=== PATIENT | female | born 1965 | race Caucasian/White ===

== ENCOUNTER 2016-07-05 18:27 | Inpatient (IN) | payer OTHER ==
[2016-07-05] MEDS ORDERED: IOPAMIDOL 370 (76%) 100 ML VIAL IV ONE (18:28)
[2016-07-05] MEDS ORDERED: ONDANSETRON 4 MG/2ML 2 ML VIAL ONE ×2 (18:58→19:26)
[2016-07-05] MEDS ORDERED: SODIUM CHLORIDE 0.9% 1,000 ML ONE (18:58)
[2016-07-05 19:03] LABS: ABSOLUTE NEUTROPHIL COUNT 10.2 K/mm3 (1.8-7.7); BASO # 0.1 K/mm3 (0.0-0.2); BASO % 0.4 % (0.2-1.0); EOS # 0.2 (0.0-0.5); EOS % 1.6 % (0.9-2.9); HEMOGLOBIN 16.1 gm/l (12.0-16.0); IMM NEUT% 0.3 % (0-1); LYMPH # 1.8 (1.0-4.8); LYMPH % 13.6 % (15-45); MEAN CELL VOLUME 90.7 fl (81.0-99.0); MEAN CORPUSCULAR HEMOGLOBIN 29.2 pg (27.0-31.0); MEAN CORPUSCULAR HGB CONC 32.2 g/dl (33.0-37.0); MONO % 7.8 % (4-12); NEUT % 76.3 % (43-75); PLATELET COUNT 319 K/mm3 (130-400); RED CELL DISTRIBUTION WIDTH 13.2 % (11.5-14.5)
[2016-07-05 19:20] LABS: ALB/GLOB RATIO 1.2 (>1.0); ALBUMIN 3.8 gm/dL (3.5-5.7); CALCIUM 9.4 mg/dL (8.6-10.3)
[2016-07-05] MEDS ORDERED: HYDROMORPHONE HCL 1 MG/ML SYRINGE ONE (19:26)
[2016-07-05 19:51] LABS: SPECIFIC GRAVITY 1.025 (1.001-1.030); URINE BILIRUBIN NEGATIVE (NEGATIVE); URINE BLOOD TRACE (NEGATIVE); URINE GLUCOSE (UA) TRACE (NEGATIVE); URINE LEUKOCYTE ESTERASE NEGATIVE (NEGATIVE); URINE NITRITE NEGATIVE (NEGATIVE); URINE PROTEIN 1+ (NEGATIVE); URINE UROBILINOGEN NORMAL (0-1 mg/dl)
[2016-07-05 19:52] LABS: URINE APPEARANCE CLEAR; URINE COLOR AMBER
[2016-07-05 20:12] LABS: URINE BACTERIA 1+; URINE MUCUS 1+
--- NOTE | 2016-07-05 20:23 | CT ---
Name: BETTY SHARIF Exam: CT abdomen pelvis with contrast Comparison: None History: Vomiting and diarrhea Procedure: Helical CT using multidetector technique was applied to the abdomen and pelvis during intravenous administration of 100 cc Isovue-370. No oral contrast was given per ordering physician. An automated dose reduction technique was used to minimize patient radiation dose. Findings: CT abdomen (contrast enhanced): Lung bases are clear. Heart is nonenlarged. There is no pericardial effusion. Fatty infiltration of liver is identified. The gallbladder is surgically absent. There is no suspicious biliary dilation. Pancreas, spleen, adrenal glands, right kidney, aorta and portal vein are normal. There is a 6 1 cm left renal cyst. The IVC is flattened suggesting a component of dehydration. There is a small hiatal hernia. Stomach is not distended. There are multiple abnormally dilated loops of small bowel measuring up to 4 cm. Bowel wall thickening is present. Diffuse edema is noted throughout the mesentery. There are air-fluid levels within nondistended colon. There is no colonic wall thickening. Trace diffuse ascites is present. There is no free air or abscess. The appendix is not identified as a separate anatomic structure. There is a fat filled umbilical hernia. Regional skeleton is within normal limits for the patient's age. CT pelvis (contrast enhanced): Bladder is empty. Uterus and ovaries are absent. Colon is mostly decompressed. Diffuse thickening of the small bowel is present. Mesenteric edema is present within the small bowel mesentery in the pelvis, there is a 10 mm fairly coarse calcification. In the right lower quadrant, there is a well-corticated oval 16 mm calcific density and this calcification is thought to represent old fat necrosis. There is mild free fluid. There is no free air, abscess or adenopathy. Impression: 1. Findings most consistent with small bowel obstruction. Findings may simply represent obstruction due to adhesion. However, given the increased density within the mesentery, closed loop or internal hernia is not excluded. Given the soft tissue stranding with coarse calcification at the root of the mesentery in the pelvis, carcinoid is not excluded. 2. Nonvisualization of the appendix 3. Air-fluid levels within nondistended colon consistent with patient's history of diarrhea 4. Surgically absent uterus, ovaries and gallbladder 5. Fatty infiltration liver Note: ED was initially contacted at 2009 hours. Findings were discussed Dr. Glynn at 2014 hours.
[2016-07-05] MEDS ORDERED: LACTATED RINGERS 1,000 ML ONE (20:50)
[2016-07-05] MEDS ORDERED: MENTHOL/CETYLPYRD 1 EACH LOZENGE PO PRN (21:29)
[2016-07-05] MEDS ORDERED: SODIUM CHLORIDE 0.9% 100 ML IV PRN (21:29)
[2016-07-05] MEDS ORDERED: BLISTEX LIPSTICK 1 EACH TP PRN (21:29)
[2016-07-05 23:07] VITALS: BMI 42.6
[2016-07-05] MEDS ORDERED: SODIUM CHLOR 0.45%/KCL 20 MEQ 1,000 ML ONE (23:37)
[2016-07-05] MEDS ORDERED: PUMP TUBING ONE (23:37)
[2016-07-05] MEDS: POTASSIUM CHLORIDE 20 MEQ in SODIUM CHLORIDE 0.45% 1,000 ML IV SCH (23:42)
[2016-07-06] MEDS ORDERED: HYDROMORPHONE HCL 1 MG/ML SYRINGE IV PRN (02:21)
[2016-07-06] MEDS: SODIUM CHLOR 0.45%/KCL 20 MEQ 1,000 ML IV SCH ×4 (03:46→22:06)
[2016-07-06] MEDS: POTASSIUM CHLORIDE 20 MEQ in SODIUM CHLORIDE 0.45% 1,000 ML IV SCH (05:03)
[2016-07-06 06:16] LABS: HEMATOCRIT 43.7 % (37.0-47.0); HEMOGLOBIN 13.6 gm/l (12.0-16.0); MEAN CORPUSCULAR HEMOGLOBIN 28.6 pg (27.0-31.0); MEAN CORPUSCULAR HGB CONC 31.1 g/dl (33.0-37.0); RED CELL DISTRIBUTION WIDTH 13.2 % (11.5-14.5)
[2016-07-06 06:30] LABS: CALCIUM 8.4 mg/dL (8.6-10.3)
--- NOTE | 2016-07-06 07:58 | HP ---
BETTY SHARIF [id number] : 1965 DATE OF ADMISSION: July 05, 2016 IDENTIFICATION: Ms. Sharif is a 50-year-old followed by Dr. Adler. CHIEF COMPLAINT: Vomiting, diarrhea and abdominal pain. HISTORY OF PRESENT ILLNESS: Ms. Sharif reports onset of nausea and vomiting five days ago on Wednesday, July 01, 2016. She started to have diarrhea at the same time. Anytime she has consumed food or fluids since then, she has had vomiting and diarrhea. She reports abdominal pain which is all the way across her abdomen strikes after she urinates, lasts for a while and gets better. She has not had any fever or chills. She has no prior history of similar symptoms, but has had several abdominal surgeries. CT scan in the emergency department was consistent with partial small bowel obstruction, and she was referred to the hospitalist service. REVIEW OF SYSTEMS: HEENT: She has felt dizzy and faint. No headache, no loss of consciousness. Denies problems with ears, eyes, nose or throat. RESPIRATORY: No cough or dyspnea. CARDIAC: No chest pain or palpitations. GASTROINTESTINAL: As per History of Present Illness. GENITOURINARY: She does not have any dysuria or urinary urgency just the abdominal pain after voiding. MUSCULOSKELETAL: Does feel that her hands and feet have been swollen. CONSTITUTIONAL: No fevers or chills, no recent weight change. PAST MEDICAL HISTORY: 1. Glucose intolerance or early diabetes. She is not sure about that. 2. Morbid obesity with body mass index greater than 42. 3. Meniere's disease. 4. History of hyperparathyroidism. PAST SURGICAL HISTORY: 1. A procedure for overlapping skull bones at [age] years of age. 2. Cholecystectomy. 3. A unilateral salpingo-oophorectomy. 4. Subsequent hysterectomy. 5. A supposed appendectomy but then her appendix was removed a second time with her hysterectomy. 6. Parathyroidectomy. ALLERGIES: NONE KNOWN. MEDICATIONS: No current prescription medications. HABITS: She smokes one-half pack of cigarettes a day and has done so for 40 years. Denies any current alcohol use or illicit drug use. SOCIAL HISTORY: She is unemployed. Lives with her , son, and [id number] in [place]. Notably, her had an episode of diarrhea on Wednesday. He did not have any vomiting or abdominal pain and his symptoms have resolved. FAMILY HISTORY: Her mother has diabetes. She says family members have edema and Meniere's disease. PHYSICAL EXAMINATION: GENERAL: This is a morbidly obese 50-year-old. She appears moderately uncomfortable with abdominal pain and dizziness. VITAL SIGNS: Temperature 97.6 degrees Fahrenheit, pulse 90, blood pressure 170/110, respiratory rate 18, oxygen saturation 93% on room air. HEENT: Pupils are equal, round and reactive. Extraocular muscles are intact. Oropharynx is dry. NECK: No appreciable adenopathy. CHEST: Clear to auscultation. HEART: Is regular, no murmur. ABDOMEN: Obese, soft with diffuse moderate to severe tenderness to palpation. No guarding or rebound. Bowel sounds are decreased and high pitched. No masses palpated. EXTREMITIES: Good peripheral pulses. No pitting edema. NEUROLOGIC: Alert and oriented, no focal deficits. LABORATORY DATA: White blood cell count 13.4 with 76% neutrophils, hemoglobin and hematocrit 16.1 and 50.0, platelets 319. Sodium 136, potassium low at 3.5, chloride 101, CO2 25, BUN 23, creatinine 0.9, glucose is 165. Liver enzymes are normal. Lipase is normal. Urinalysis specific gravity 1.025. There is 1+ protein, trace glucose, trace ketones, trace blood. Negative leukocyte esterase, negative nitrite. Microscopic shows 2 to 3 red blood cells, 1 to 2 white blood cells, 1 to 2 epithelial cells, 1+ bacteria. RADIOLOGY: CT scan of the abdomen and pelvis significant for air/fluid levels suggesting small bowel obstruction. There is some increased density in the mesentery possibly indicating internal hernia and possible findings of carcinoid. Absent appendix, absent uterus, ovaries and gallbladder. Fatty infiltration of the liver. ASSESSMENT: Ms. Sharif is a 50-year-old who presents with partial small bowel obstruction. She has hypokalemia from the vomiting and diarrhea and dehydration with polycythemia. She has hyperglycemia and probably underlying diabetes mellitus type 2 with her morbid obesity and nicotine dependence. PLAN: 1. Admit to medical/surgical floor. 2. She has received a liter of normal saline and part of a liter of lactated Ringers in the emergency department. We will complete the second liter and then continue half-normal saline with 20 mEq of potassium per liter at 250 mL an hour overnight. 3. Nothing by mouth and check abdominal 3-way x-ray series in the morning. Consider nasogastric decompression if she has recurrent vomiting. 4. Check blood sugar every six hours. We will also check glycosylated hemoglobin and TSH. 5. Venous thromboembolism prophylaxis with obesity dosed enoxaparin. 6. FULL CODE status. 7. Smoking cessation counseling.
--- NOTE | 2016-07-06 08:20 | RAD ---
ABDOMEN 2 VIEWS W PA CHEST COMPARISON: CT abdomen and pelvis with contrast, 07/05/2016 HISTORY: Small bowel obstruction. FINDINGS: Views: Frontal chest, supine abdomen, upright abdomen. Lungs: Minimal subsegmental atelectasis in the left lung base. Heart and vessels: Normal. Trachea and bronchi: Normal. Mediastinum and brandt: Normal. Costophrenic sulci: Normal. Chest wall: Normal. Pneumoperitoneum: None. The bowel gas pattern: In the upper abdomen, the small bowel is dilated up to 5.4 cm. There are multiple air-fluid levels. There is gas within the sigmoid colon. Solid organs: Normal. Calcification: Normal. Bones: Normal. Surgical clips: Right upper quadrant. IMPRESSION: Small bowel obstruction without progression.
[2016-07-06] MEDS: ENOXAPARIN SODIUM 30 MG/0.3 ML SYRINGE SUB-Q SCH ×2 (08:41→22:05)
--- NOTE | 2016-07-06 08:53 | PDOC43 ---
- Subjective Chief Complaint: Vomiting and diarrhea. Continues to feel nauseated but has not vomited since admit. Has had three diarrheal BMs since admit. Abdominal pain unchanged. - Objective Vital Signs Temperature 98.3 F 07/06/16 07:12 Pulse Rate 94 07/06/16 07:12 Respiratory Rate 16 07/06/16 07:12 Blood Pressure 155/96 07/06/16 07:12 O2 Saturation by Pulse Oximetry 97 07/06/16 07:12 Oxygen Delivery Method Room Air Oxygen Flow Rate 0 Intake and Output 07/05/16 07/06/16 07/07/16 06:59 06:59 06:59 Intake Total 3557 Output Total 600 Balance 2957 General: Alert, Oriented x3, Cooperative, Moderate Distress HEENT: Mucous membr. moist/pink Lungs: Clear to Auscultation Bilaterally Cardiovascular: Regular Rate and Rhythm Abdomen: Soft, Tenderness (worst in epigastrum), Hypoactive Bowel Sounds, No Rigid, No Rebounding, No Involuntary Guarding, No Masses Extremities: Normal Pulses, No Edema Skin: Normal Color Neurological: Normal Speech Psych/Mental Status: Normal Mood Laboratory 07/06/16 05:30 07/06/16 05:30 07/06/16 07/06/16 06:29 05:30 MCHC 31.1 L POC Capillary Glucose 113 H Calcium 8.4 L Current Medications: Current meds reviewed in EMR. - Problems: Assessment/Plan (1) Partial small bowel obstruction Status: AcuteAssessment/Plan: X-rays today with persistent obstruction although diarrhea continues. Continue NPO, IVF, and request surgical consult. (2) Dehydration Status: AcuteAssessment/Plan: Due to vomiting, diarrhea, and no PO intake with secondary polycythemia-- improved with IV hydration. (3) Hypokalemia Status: AcuteAssessment/Plan: Due to vomiting and diarrhea, improved with IV replacement (4) Hyperglycemia Status: ChronicAssessment/Plan: A1c pending, may be diabetic, continue CBGs. (5) Nicotine dependence Qualifiers: Nicotine product type: cigarettes Substance use status: uncomplicated Qualifier Code: (F17.210) Nicotine dependence, cigarettes, uncomplicated Status: ChronicAssessment/Plan: Cessation counseling (6) Obesity, morbid, BMI 40.0-49.9 Status: ChronicAssessment/Plan: Complicates assessment of the abdomen and will complicate surgery if necessary. Complicates BG control and REGINO with Obesity hypoventilation syndrome. (7) REGINO (obstructive sleep apnea) Status: ChronicAssessment/Plan: related to morbid obesity and obesity hypoventilation, continue home CPAP. VTE Prophylaxis: morbid obesity dose enoxaparin
[2016-07-06 11:50] LABS: A1C-GLYCOHEMOGLOBIN 0.9 g/dl; HEMOGLOBIN-GLYCO 14.5 g/dl
[2016-07-06] MEDS: MAGNESIUM HYDROXIDE/AL HYDROX 30 ML UDCUP PO PRN (15:07)
[2016-07-06] MEDS: HYDROMORPHONE HCL 0.5 MG/0.5 ML SYRINGE IV PRN (16:54)
--- NOTE | 2016-07-06 17:39 | PCMCONS ---
General Surgery Consult: CC: Abdominal pain HPI: 50 y/o F with no prior history of similar episode presents to ED with abdominal pain. Started abdominal pain about 2 weeks ago. Everytime she urinated she would have abdominal pain starting in the pelvis and spasming up to her umbilicus. Then she would have to have a BM but it was never much of a BM. This was everytime she had to use the restroom. About 1 week ago the pain became more constant and she developed diarrhea. Her had diarrhea as well, but no other symptoms and is over it now. She also has nausea/vomiting. No fevers/chills. She has been getting more and more sick/weak over the last few days and finally came in to the hospital for help. The patient denies any recent F/C/CP/SOB, change in bladder fx, constipation, unintentional weight loss, easy bleeding/bruising, or other associated symptoms. REVIEW OF SYSTEMS CONSTITUTIONAL: As per HPI. EARS, NOSE, MOUTH, THROAT: No sneezing or runny nose CARDIOVASCULAR: No irregular rhythms, racing heart beats or chest pain. RESPIRATORY: No SOB, coughing, wheezing or sputum. GASTROINTESTINAL: As per HPI. GENITOURINARY: As per HPI. NEUROLOGICAL: No history of seizures HEMATOLOGIC: As per HPI. MUSCULOSKELETAL: No change in strength. LYMPHATICS: No history of splenectomy. PSYCHIATRIC: No change in personality or affect PMH: Diabetes (but she hasn't confirmed diagnosis) PSH: Hysterectomy, tubal, appendectomy, cholecystectomy Meds: none All: [] SH: denies alcohol, tobacco or illicit drug use FH: Diabetes and heart disease Vitals (last 24 hours): Physical Exam: General/Constitutional: Vitals documented above, comfortable in NAD Psych: A&O x 3, normal judgment and insight. Recent and remote memory intact. Mood and affect normal. Eyes: Pupils equal, no scleral icterus Ears, Nose, Mouth, Throat: gross hearing intact Neck: Supple Heart: RRR, no LE edema Lungs: Equal rise and fall of chest wall, non-labored breathing, no audible wheezes Neuro: Gross sensation intact Abdomen: Soft, ND, no guarding. No umbilical hernia. Tenderness mostly in epigastric area and RUQ. No peritoneal signs : Testicles symmetric without masses. Penis normal without lesions. Lymph: No enlarged lymph nodes Labs (Last 24 hours): normal WBC, some electrolyte abnormality Radiology: Thickened distal small bowel. Dilated proximal small bowel. Air and stool in colon. Fluid in abdomen A/P: 50 y/o F with likely infectious or inflammatory process of the small bowel. Less likely ischemic or obstructive. There is too long segment of bowel for an internal hernia or adhesion causing an obstruction. She also has a lot of fluid in her abdomen. Her exam is not that concerning. She is hungry and she is still having bowel movements. I am comfortable in saying this is not a surgical problem and she can start clear liquids. I recommend supportive care. If she isn't improving with fluids and supportive care I may try steroids. I would do inflammatory markers as well to look for irritable bowel or crohn's.
[2016-07-06] MEDS: AMLODIPINE BESYLATE 5 MG TABLET PO SCH (22:05)
[2016-07-07] MEDS: SODIUM CHLOR 0.45%/KCL 20 MEQ 1,000 ML IV SCH ×4 (00:04→22:09)
[2016-07-07 06:54] LABS: CALCIUM 8.6 mg/dL (8.6-10.3)
[2016-07-07] MEDS: ONDANSETRON 4 MG/2ML 2 ML VIAL IV PRN (10:16)
[2016-07-07] MEDS: ENOXAPARIN SODIUM 30 MG/0.3 ML SYRINGE SUB-Q SCH ×2 (10:16→20:52)
--- NOTE | 2016-07-07 10:39 | RAD ---
ABDOMEN 2 VIEWS W PA CHEST HISTORY: Follow-up small bowel obstruction. COMPARISONS: 07/06/2016. FINDINGS: Supine and upright views of the abdomen and a single view chest were obtained demonstrating dilated loops of small bowel within the central abdomen measuring up to 5.9 cm transversely, similar to the appearance on prior examination. There are small bowel air-fluid levels identified. No definite evidence of free intraperitoneal air is observed. The heart size is normal. The lung hickman appear to be clear. IMPRESSION: 1. Dilated centrally located small bowel loops consistent with a small bowel obstruction with an appearance similar to that seen on prior exam. No evidence of free intraperitoneal air is suggested. 2. A negative single view chest.
[2016-07-07] MEDS ORDERED: POTASSIUM CHLORIDE 40 MEQ in SODIUM CHLORIDE 0.9% 180 ML IV ONE (15:47)
--- NOTE | 2016-07-07 15:59 | PDOC43 ---
- Subjective Chief Complaint: Vomiting and diarrhea. SBO, partial Patient reports still having loose frequent stools with urination. Ongoing abd pain, diffuse. Denies vomiting, but some nausea, some reflux. She notes some others at home have been having similar sx with some abd pains, looser stools. Sister in law has been staying with her, along with VAUGHN's cats. - Objective Vital Signs Temperature 97.8 F 07/07/16 14:07 Pulse Rate 94 07/07/16 14:07 Respiratory Rate 20 07/07/16 14:07 Blood Pressure 151/88 07/07/16 14:07 O2 Saturation by Pulse Oximetry 96 07/07/16 14:07 Oxygen Delivery Method Room Air Oxygen Flow Rate 0 Active Medications Al Hydroxide/Mg Hydroxide (Maalox) 30 ml PO Q4H PRN PRN Reason: Dyspepsia Last Admin: 07/06/16 15:07 Dose: 30 ml Amlodipine Besylate (Norvasc) 5 mg PO Q24H [facility] Last Admin: 07/06/16 22:05 Dose: 5 mg Benzocaine/Menthol (Cepacol) 1 each PO PRN PRN PRN Reason: Sore Throat Enoxaparin Sodium (Lovenox) 30 mg SUB-Q Q12HR [facility] Last Admin: 07/07/16 10:16 Dose: 30 mg Hydromorphone HCl (Dilaudid) 0.5 - 1 mg IV Q2H PRN PRN Reason: Pain Last Admin: 07/06/16 16:54 Dose: 0.5 mg Hydromorphone HCl (Dilaudid) 0.5 - 1 mg IV Q2H PRN PRN Reason: Pain Sodium Chloride (Sodium Chloride 0.9%) 100 mls @ 25 mls/hr IV PRN PRN PRN Reason: Flush Potassium Chloride/Sodium Chloride (Sodium Chlor 0.45%/Kcl 20 Meq) 1,000 mls @ 125 mls/hr IV .Q8H [facility] Last Admin: 07/07/16 10:27 Dose: Not Given Ondansetron HCl (Zofran) 4 mg IV Q3H PRN PRN Reason: Nausea/Vomiting Last Admin: 07/07/16 10:16 Dose: 4 mg Petrolatum/Paraffin/Mineral Oil (Blistex) 1 each TP PRN PRN PRN Reason: Dry and/or chapped lips Sodium Chloride (Normal Saline 10ml Flush) 10 - 50 ml IV PRN PRN PRN Reason: IV Flush Last Admin: 07/07/16 10:16 Dose: 10 ml Sodium Chloride (Normal Saline 10ml Flush) 10 ml IV Q8HR [facility] Last Admin: 07/07/16 10:16 Dose: Not Given Intake and Output 07/05/16 07/06/16 07/07/16 23:59 23:59 23:59 Intake Total 1999 2965 1682 Output Total 200 1400 1100 Balance 1800 1565 582 General: Alert, Mild Distress HEENT: Atraumatic Lungs: Clear to Auscultation Bilaterally, Normal Air Movement Cardiovascular: Regular Rate and Rhythm Abdomen: Soft, Tenderness (diffuse. No rebound.), Other (bowel sounds decreased but present. Not metallic.), No Rebounding Extremities: No Edema, No Tenderness Skin: Normal Color Neurological: Normal Speech Psych/Mental Status: Anxious (sl anxious affect) Laboratory 07/06/16 05:30 07/07/16 06:20 07/07/16 07/07/16 07/07/16 12:22 06:20 06:06 Estimated GFR 105 H POC Capillary Glucose 144 H 129 H 07/06/16 16:50 Estimated GFR POC Capillary Glucose 129 H Current Medications: Current meds reviewed in EMR. Active Medications Al Hydroxide/Mg Hydroxide (Maalox) 30 ml PO Q4H PRN PRN Reason: Dyspepsia Last Admin: 07/06/16 15:07 Dose: 30 ml Amlodipine Besylate (Norvasc) 5 mg PO Q24H [facility] Last Admin: 07/06/16 22:05 Dose: 5 mg Benzocaine/Menthol (Cepacol) 1 each PO PRN PRN PRN Reason: Sore Throat Enoxaparin Sodium (Lovenox) 30 mg SUB-Q Q12HR [facility] Last Admin: 07/07/16 10:16 Dose: 30 mg Hydromorphone HCl (Dilaudid) 0.5 - 1 mg IV Q2H PRN PRN Reason: Pain Last Admin: 07/06/16 16:54 Dose: 0.5 mg Hydromorphone HCl (Dilaudid) 0.5 - 1 mg IV Q2H PRN PRN Reason: Pain Sodium Chloride (Sodium Chloride 0.9%) 100 mls @ 25 mls/hr IV PRN PRN PRN Reason: Flush Potassium Chloride/Sodium Chloride (Sodium Chlor 0.45%/Kcl 20 Meq) 1,000 mls @ 125 mls/hr IV .Q8H [facility] Last Admin: 07/07/16 10:27 Dose: Not Given Ondansetron HCl (Zofran) 4 mg IV Q3H PRN PRN Reason: Nausea/Vomiting Last Admin: 07/07/16 10:16 Dose: 4 mg Petrolatum/Paraffin/Mineral Oil (Blistex) 1 each TP PRN PRN PRN Reason: Dry and/or chapped lips Sodium Chloride (Normal Saline 10ml Flush) 10 - 50 ml IV PRN PRN PRN Reason: IV Flush Last Admin: 07/07/16 10:16 Dose: 10 ml Sodium Chloride (Normal Saline 10ml Flush) 10 ml IV Q8HR [facility] Last Admin: 07/07/16 10:16 Dose: Not Given - Problems: Assessment/Plan (1) Partial small bowel obstruction Status: AcuteAssessment/Plan: X-rays today with persistent obstruction although diarrhea continues. Check KUB. Continue NPO, IVF, and appreciate surgical consult. Check stool tests (2) Dehydration Status: AcuteAssessment/Plan: Due to vomiting, diarrhea, improved with IV hydration. (3) Hyperglycemia Status: ChronicAssessment/Plan: A1c 8.0, c/w diabetic, continue CBGs. (4) Obesity, morbid, BMI 40.0-49.9 Status: ChronicAssessment/Plan: Complicates assessment of the abdomen and will complicate surgery if necessary. Complicates BG control and REGINO with Obesity hypoventilation syndrome. (5) Nicotine dependence Qualifiers: Nicotine product type: cigarettes Substance use status: uncomplicated Qualifier Code: (F17.210) Nicotine dependence, cigarettes, uncomplicated Status: ChronicAssessment/Plan: Cessation counseling (6) REGINO (obstructive sleep apnea) Status: ChronicAssessment/Plan: related to morbid obesity and obesity hypoventilation, continue home CPAP. VTE Prophylaxis: morbid obesity dose enoxaparin Disposition: Need to have return of bowel function, then would anticipate going home.
[2016-07-07] MEDS ORDERED: POTASSIUM CHLORIDE 40 MEQ in SODIUM CHLORIDE 0.9% 500 ML IV ONE (16:20)
[2016-07-07 20:08] LABS: STOOL FOR OCCULT BLOOD NEGATIVE (NEGATIVE)
[2016-07-07] MEDS: AMLODIPINE BESYLATE 5 MG TABLET PO SCH (20:52)
[2016-07-07 21:21] LABS: C DIFF TOXIN A/B NEGATIVE (NEGATIVE)
[2016-07-08] MEDS: SODIUM CHLOR 0.45%/KCL 20 MEQ 1,000 ML IV SCH ×3 (06:00→21:29)
[2016-07-08 06:53] LABS: ABSOLUTE NEUTROPHIL COUNT 5.3 K/mm3 (1.8-7.7); BASO % 0.4 % (0.2-1.0); EOS # 0.3 (0.0-0.5); EOS % 4.1 % (0.9-2.9); HEMATOCRIT 42.7 % (37.0-47.0); HEMOGLOBIN 13.7 gm/l (12.0-16.0); IMM NEUT% 0.3 % (0-1); LYMPH # 1.6 (1.0-4.8); LYMPH % 19.5 % (15-45); MEAN CELL VOLUME 90.5 fl (81.0-99.0); MEAN CORPUSCULAR HGB CONC 32.1 g/dl (33.0-37.0); MEAN PLATELET VOLUME 11.1 fl (7.4-10.4); MONO # 0.7 (0.0-0.8); NEUT % 66.7 % (43-75); PLATELET COUNT 209 K/mm3 (130-400); RED CELL DISTRIBUTION WIDTH 12.9 % (11.5-14.5)
[2016-07-08 07:17] LABS: ALB/GLOB RATIO 1.3 (>1.0); ALBUMIN 3.4 gm/dL (3.5-5.7); CALCIUM 8.7 mg/dL (8.6-10.3)
[2016-07-08 07:18] LABS: C-REACTIVE PROTEIN 1.4 mg/dl (<1.0)
[2016-07-08] MEDS: MAGNESIUM HYDROXIDE/AL HYDROX 30 ML UDCUP PO PRN (08:04)
[2016-07-08] MEDS: ONDANSETRON 4 MG/2ML 2 ML VIAL IV PRN (09:52)
[2016-07-08] MEDS: ENOXAPARIN SODIUM 30 MG/0.3 ML SYRINGE SUB-Q SCH ×2 (09:52→21:29)
[2016-07-08] MEDS: LISINOPRIL 20 MG TABLET PO SCH (12:29)
[2016-07-08] MEDS ORDERED: PANTOPRAZOLE 40 MG TABLET DR PO SCH (13:45)
--- NOTE | 2016-07-08 19:19 | PDOC43 ---
- Subjective Chief Complaint: Vomiting and diarrhea. SBO, partial Patietn with conintued abdominal pain and nausea. She does wish to advance her diet however. She has not been out of bed. Subjective: Reports Pain Tolerable, Reports Adequate Oral Intake, Reports Abdominal Pain, Reports Nausea, Denies Shortness of Breath, Denies Cough, Denies Chest Pain, Denies Vomiting, Denies Fever - Objective Vital Signs Temperature 97.7 F 07/08/16 13:10 Pulse Rate 92 07/08/16 13:10 Respiratory Rate 18 07/08/16 14:00 Blood Pressure 159/108 07/08/16 13:10 O2 Saturation by Pulse Oximetry 94 07/08/16 13:10 Oxygen Delivery Method Room Air Oxygen Flow Rate 0 Intake and Output 07/06/16 07/07/16 07/08/16 23:59 23:59 23:59 Intake Total 2965 1682 3055 Output Total 1400 1100 1450 Balance 7306 805 8030 General: Alert, Oriented x3, Cooperative, Other (morbidly obese), No Acute Distress HEENT: Atraumatic, PERRLA, EOMI, Mucous membr. moist/pink Lungs: Clear to Auscultation Bilaterally, Normal Air Movement Cardiovascular: Regular Rate and Rhythm, Normal S1, Normal S2 Abdomen: Soft, Tenderness, Mild Distention, No Rigid, No Rebounding Extremities: No Cyanosis, No Edema, No Tenderness Neurological: Normal Speech Psych/Mental Status: Normal Mood Laboratory 07/08/16 06:05 07/08/16 06:05 07/08/16 07/08/16 07/08/16 17:36 06:20 06:05 MCHC 32.1 L POC Capillary Glucose 115 H 123 H C-Reactive Protein 1.4 H Total Protein 6.1 L Albumin 3.4 L Current Medications: Current meds reviewed in EMR. - Problems: Assessment/Plan (1) Partial small bowel obstruction Status: AcuteAssessment/Plan: X-rays today with persistent obstruction although diarrhea continues. Check KUB. Continue NPO, IVF, and appreciate surgical consult; no intervention at this time Check stool tests which are negative Pain improving, advancing diet (2) Dehydration Status: AcuteAssessment/Plan: Due to vomiting, diarrhea, improved with IV hydration. (3) Hypokalemia Status: AcuteAssessment/Plan: Due to vomiting and diarrhea, improved with IV replacement (4) Hyperglycemia Status: ChronicAssessment/Plan: A1c 8.0, c/w diabetic, continue CBGs. (5) Obesity, morbid, BMI 40.0-49.9 Status: ChronicAssessment/Plan: Complicates assessment of the abdomen and will complicate surgery if necessary. Complicates BG control and REGINO with Obesity hypoventilation syndrome. (6) Nicotine dependence Qualifiers: Nicotine product type: cigarettes Substance use status: uncomplicated Qualifier Code: (F17.210) Nicotine dependence, cigarettes, uncomplicated Status: ChronicAssessment/Plan: Cessation counseling (7) REGINO (obstructive sleep apnea) Status: ChronicAssessment/Plan: related to morbid obesity and obesity hypoventilation, continue home CPAP. (8) DM (diabetes mellitus), type 2, uncontrolled Qualifiers: Diabetes mellitus complication status: without complication Diabetes mellitus intermediate insulin use: without continuous churn buttermaker use Qualifier Code: ( E11.65) Type 2 diabetes mellitus with hyperglycemia Status: Chronic Assessment/Plan: New diagnosis. Will need close F/U. Will treat with sliding scale as needed. Start PO meds upon discharge (9) Hypertension Status: AcuteAssessment/Plan: unknown if new diagnosis, not previously diagnosed, or elevated BP 2nd to pain and hospitalization. Start anti-hypertensives and monitor VTE Prophylaxis: morbid obesity dose enoxaparin Disposition: Need to have return of bowel function, then would anticipate going home.
[2016-07-08] MEDS: AMLODIPINE BESYLATE 5 MG TABLET PO SCH (21:29)
[2016-07-08] MEDS: HYDROMORPHONE HCL 0.5 MG/0.5 ML SYRINGE IV PRN (21:34)
[2016-07-09] MEDS: HYDROMORPHONE HCL 0.5 MG/0.5 ML SYRINGE IV PRN (02:15)
[2016-07-09] MEDS: SODIUM CHLOR 0.45%/KCL 20 MEQ 1,000 ML IV SCH ×2 (05:44→10:02)
[2016-07-09 07:28] VITALS: BP 132/86
[2016-07-09] MEDS ORDERED: HYDROCODONE/ACETAMINOPHEN 5/325MG TABLET PO PRN (08:36)
[2016-07-09] MEDS: ENOXAPARIN SODIUM 30 MG/0.3 ML SYRINGE SUB-Q SCH (09:15)
[2016-07-09] MEDS: LISINOPRIL 20 MG TABLET PO SCH (09:15)
--- NOTE | 2016-07-09 09:59 | PDOC5 ---
ADMIT DATE: 07/05/16 DISCHARGE DATE: 07/09/16 ADMISSION DIAGNOSES: SBO Discharge Diagnoses: SBO New diagnosis of Type II Diabetes Mellitus, uncontrolled Elevated Blood Pressure Morbid Obesity PROCEDURES PERFORMED THIS HOSPITALIZATION: None CONSULTATIONS: General Surgery HOSPITAL COURSE: This is a 51 year old female who developed abdominal pain after 5 days of nausea, vomiting and diarrhea. CT in the emergency room revealed a small bowel obstruction. She was admitted to the hospital for bowel rest and IVF hydration. She did not have an NGT. She was found to have hyperglycemia and A1c was elevated at 8.0. We discussed the diagnosis of Type II DM and that she will need to make lifestyle changes along beginning medications to help manage the disease. She agreed to F/U with her PCP for ongoing evaluation and treatment. Her blood pressure was also elevated during the hospital stay with response to anti-hypertensives. She is F/U for ongoing management. As her abdominal pain improved, her diet was advanced which she did tolerate. General surgery evaluated the patient and recommend ongoing conservative management. - Exam Vital Signs Temperature 98.0 F 07/09/16 07:28 Pulse Rate 82 07/09/16 07:28 Respiratory Rate 20 07/09/16 07:28 Blood Pressure 132/86 07/09/16 07:28 O2 Saturation by Pulse Oximetry 95 07/09/16 07:28 Oxygen Delivery Method Room Air Oxygen Flow Rate 0 General: Alert, Oriented x3, Cooperative, Other (morbidly obese), No Acute Distress HEENT: Atraumatic, PERRLA, EOMI, Mucous membr. moist/pink Lungs: Clear to Auscultation Bilaterally, Normal Air Movement, Other (slight basilar crackle on left) Cardiovascular: Regular Rate and Rhythm, Normal S1, Normal S2 Abdomen: Soft, Hyperactive Bowel Sounds, Mild Distention, No Rigid, No Tenderness, No Rebounding Extremities: No Cyanosis, No Edema, No Tenderness Neurological: Normal Speech Psych/Mental Status: Normal Mood - Results Laboratory 07/08/16 06:05 07/08/16 06:05 07/09/16 07/08/16 07/08/16 07:35 23:13 17:36 POC Capillary Glucose 110 H 116 H 115 H Imaging Results: CT Abd/Pelvis: /SBO. Obstruction due to adhesion, closed loop or internal hernia cannot be excluded. Carcinoid not excluded duto to coarse calcification of mesentery and soft tissue stranding. Air-fluid levels with non-distended colon consistent with history of diarrhea/ Surgically absent uterus, ovaries, gallbladder. Fatty liver infiltration KUB: SBO without progression KUB: Dilated centrally located small bowel loop[s consistent with SBO, appearance similar to seen on prior exam. No evidence of free intraperitoneal air. Negative single view chest - Problems:Assessment/Plan (1) Partial small bowel obstruction Status: AcuteAssessment/Plan: X-rays today with persistent obstruction although diarrhea continues. Check KUB. Continue NPO, IVF, and appreciate surgical consult; no intervention at this time Check stool tests which are negative Pain improving, advancing diet (2) Dehydration Status: AcuteAssessment/Plan: Due to vomiting, diarrhea, improved with IV hydration. (3) Hypokalemia Status: AcuteAssessment/Plan: Due to vomiting and diarrhea, improved with IV replacement (4) Hyperglycemia Status: ChronicAssessment/Plan: A1c 8.0, c/w diabetic, continue CBGs. (5) Obesity, morbid, BMI 40.0-49.9 Status: ChronicAssessment/Plan: Complicates assessment of the abdomen and will complicate surgery if necessary. Complicates BG control and REGINO with Obesity hypoventilation syndrome. (6) Nicotine dependence Qualifiers: Nicotine product type: cigarettes Substance use status: uncomplicated Qualifier Code: (F17.210) Nicotine dependence, cigarettes, uncomplicated Status: ChronicAssessment/Plan: Cessation counseling (7) REGINO (obstructive sleep apnea) Status: ChronicAssessment/Plan: related to morbid obesity and obesity hypoventilation, continue home CPAP. (8) DM (diabetes mellitus), type 2, uncontrolled Qualifiers: Diabetes mellitus complication status: without complication Diabetes mellitus fdc insulin use: without terminal superintendent use Qualifier Code: ( E11.65) Type 2 diabetes mellitus with hyperglycemia Status: Chronic Assessment/Plan: New diagnosis. Will need close F/U. Will treat with sliding scale as needed. Start PO meds upon discharge (9) Hypertension Status: AcuteAssessment/Plan: unknown if new diagnosis, not previously diagnosed, or elevated BP 2nd to pain and hospitalization. Start anti-hypertensives and monitor - Disposition: Disposition: Need to have return of bowel function, then would anticipate going home. - Discharge Plan Additional Instructions: You have Type II Diabetes, Your A1c is 8.0. Please consult your primary care physician for medication initiation. You have had elevated blood pressures during your hospitalization. You may need to begin hypertension/high blood pressure medications also. Prescriptions: Docusate Sodium [COLACE 100 MG CAPSULE (SHF)] 100 mg PO BID #60 cap Hydrocodone/Acetaminophen [Hydrocodon-Acetaminophen 5-325] 1 - 2 tab PO Q6H PRN #40 PRN Reason: Pain Ondansetron HCl [Zofran] 4 mg PO Q6H PRN #15 tablet PRN Reason: Nausea Follow-Up: David Adler MD [Referring] - 07/14/16 10:30 am Condition: Stable Disposition: Home
== END 2016-07-09 12:25 | disposition home or self-care (01) | DRG 389 ==
LOC: ED 18:27 → MS 20:58 → OBSVTOIN 21:29
PROVIDERS: ADMIT Family Medicine; ATTEND Family Medicine
DX: K56.60 Unspecified intestinal obstruction (principal); Z68.41 Body mass index [BMI] 40.0-44.9, adult; E66.01 Morbid (severe) obesity due to excess calories; H81.09 Meniere's disease, unspecified ear; E87.6 Hypokalemia; F17.210 Nicotine dependence, cigarettes, uncomplicated; G47.33 Obstructive sleep apnea (adult) (pediatric); R03.0 Elevated blood-pressure reading, without diagnosis of hypertension; E11.9 Type 2 diabetes mellitus without complications

== ENCOUNTER 2016-07-29 09:56 | Day surgery (SDC) | payer OTHER ==
[~2016-07-29 09:56] MED LIST: LACTATED RINGERS 1,000 ML IV SCH
[2016-07-29] MEDS ORDERED: IV START KIT ONE (11:11)
[2016-07-29] MEDS ORDERED: LACTATED RINGERS 1,000 ML ONE (11:11)
[2016-07-29] MEDS ORDERED: PROPOFOL 40 ML IV ONE (13:33)
--- NOTE | 2016-07-31 13:46 | SURGPATH ---
[facility] [address] [place] [id number] Patient Name: BTETY SHARIF MR#: [id number] : 1965 Gender: F Specimen #: [id number] Collected: 07/29/2016 Received: 07/30/2016 Reported: 07/31/2016 Submitting Phys: ERIC MCKEON Copy To Phys: ELIZABETH LINN [facility] Clinical History / Pre-Operative Diagnosis: NAUSEA; VOMITING; DIARRHEA; TENESMUS; PERIUMBILICAL PAIN; RULE OUT COLITIS Specimen Source / Surgical Procedure Performed: #1-CECAL BIOPSY; #2-SIGMOID BIOPSY AT 30 CM Interpretation: 1. CECUM, BIOPSY: - COLONIC MUCOSA SHOWING NO DIAGNOSTIC ABNORMALITIES. - NO EVIDENCE OF SIGNIFICANT INFLAMMATION OR MALIGNANCY. 2. COLON, SIGMOID 30 CM, BIOPSY: - COLONIC MUCOSA SHOWING NO DIAGNOSTIC ABNORMALITIES. - NO EVIDENCE OF SIGNIFICANT INFLAMMATION OR MALIGNANCY. Electronically Signed Out Eusebio Mercedes M.D., Ph.D. Gross Description: #1 The specimen is received in a formalin filled container labeled with the patient's name and "cecal biopsy". Two nuñez-rajput biopsies are 0.3 and 0.5 cm. Totally embedded in cassette #1. #2 The specimen is received in a formalin filled container labeled with the patient's name and "sigmoid biopsy at 30 cm". Two nuñez-rajput biopsies are 0.4 and 0.5 cm. Totally embedded in cassette #2. Kieran Mcgee PYaw. Microscopic Description: 1. Examination of multiple levels from the cecum biopsy shows two fragments of histologically unremarkable colonic mucosa. The architecture is intact without evidence of distortion. There is no evidence of significant inflammation or malignancy. 2. Examination of multiple levels from the sigmoid colon biopsy at 30 cm shows two fragments of histologically unremarkable colonic mucosa. The architecture is intact without evidence of distortion. There is no evidence of significant inflammation or malignancy. 1: [id number] 2: 61119 R19.7
== END 2016-07-29 13:23 | disposition home or self-care (01) ==
LOC: SDC 09:56
PROVIDERS: ATTEND Internal Medicine Gastroenterology
PROC: 0DBH8ZX Excision of Cecum, Via Natural or Artificial Opening Endoscopic, Diagnostic (ICD-10-PCS; principal; 2016-07-29)
PROC: 0DBN8ZX Excision of Sigmoid Colon, Via Natural or Artificial Opening Endoscopic, Diagnostic (ICD-10-PCS; 2016-07-29)
DX: K59.8 Other specified functional intestinal disorders (principal); F17.210 Nicotine dependence, cigarettes, uncomplicated; E11.9 Type 2 diabetes mellitus without complications; E66.9 Obesity, unspecified; M79.1 Myalgia; G89.29 Other chronic pain; Z79.891 Long term (current) use of opiate analgesic; Z88.8 Allergy status to other drugs, medicaments and biological substances; Z68.41 Body mass index [BMI] 40.0-44.9, adult
CPT/HCPCS: 45380; J7120